=== PATIENT | male | born 1985 | race Caucasian/White ===

== ENCOUNTER 2017-03-08 11:53 | Emergency (ER) | payer MEDICARE, MEDICAID ==
[2017-03-08] MEDS ORDERED: IBUPROFEN 800 MG TABLET PO STA (12:21)
[2017-03-08] MEDS ORDERED: IBUPROFEN 800 MG TABLET PO ONE (12:24)
== END 2017-03-08 12:30 | disposition home or self-care (01) ==
DX: H60.502 Unspecified acute noninfective otitis externa, left ear (principal); F17.200 Nicotine dependence, unspecified, uncomplicated
CPT/HCPCS: 99283; A9270

== ENCOUNTER 2017-04-12 09:45 | Outpatient (CLI) | payer MEDICARE, MEDICAID | END 2017-04-12 09:46 | disposition home or self-care (01) | LOC: LAB.F 09:45 | PROVIDERS: ATTEND Nurse Practitioner Family | DX: D68.59 Other primary thrombophilia (principal) | CPT/HCPCS: 85610 ==

== ENCOUNTER 2017-04-15 10:16 | Outpatient (CLI) | payer MEDICARE, MEDICAID | END 2017-04-15 10:17 | disposition home or self-care (01) | LOC: LAB.F 10:16 | PROVIDERS: ATTEND Nurse Practitioner Family | DX: D68.59 Other primary thrombophilia (principal) | CPT/HCPCS: 85610 ==

== ENCOUNTER 2017-04-18 10:52 | Outpatient (CLI) | payer MEDICARE, MEDICAID | END 2017-04-18 10:53 | disposition home or self-care (01) | LOC: LAB.F 10:52 | PROVIDERS: ATTEND Nurse Practitioner Family | DX: D68.59 Other primary thrombophilia (principal) | CPT/HCPCS: 85610 ==

== ENCOUNTER 2017-04-21 21:57 | Emergency (ER) | payer MEDICARE, MEDICAID ==
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
[2017-04-22 00:36] LABS: BUN - BLOOD UREA NITROGEN 11 mg/dL (6-20); CALCIUM 9.3 mg/dL (8.5-10.3); CARBON DIOXIDE - CO2 25 mmol/L (21-32); CHLORIDE 105 mmol/L (101-111); CREATININE 0.7 mg/dL (0.6-1.2); GFR - MDRD 130 (>89); GLUCOSE 107 mg/dL (70-100); POTASSIUM 4.1 mmol/L (3.5-5.0); SALICYLATE < 6.0 mg/dL; SODIUM 143 mmol/L (135-145)
[2017-04-22 00:48] LABS: ACETAMINOPHEN < 10 ug/mL (10-30)
[2017-04-22 01:36] LABS: BASOPHILS # (AUTO) 0.1 10^3/uL (0.0-0.1); BASOPHILS % (AUTO) 0.9 %; EOSINOPHILS # (AUTO) 0.2 10^3/uL (0.0-0.7); EOSINOPHILS % (AUTO) 2.9 %; HCT - HEMATOCRIT 43.8 % (42.0-52.0); HGB - HEMOGLOBIN 14.1 g/dL (14.0-18.0); LYMPHOCYTES % (AUTO) 32.4 %; MEAN CORPUSCULAR HEMOGLOBIN 27.3 pg (27.0-31.0); MEAN CORPUSCULAR HGB CONC 32.3 g/dL (32.0-36.0); MEAN CORPUSCULAR VOLUME 84.7 fL (80.0-94.0); MEAN PLATELET VOLUME 8.7 fL (7.4-11.4); MONOCYTES # (AUTO) 0.4 10^3/uL (0.0-1.0); MONOCYTES % (AUTO) 5.8 %; NEUTROPHILS # (AUTO) 3.7 10^3/uL (1.5-6.6); NUCLEATED RED BLOOD CELLS AUTO 0.1 /100WBC; RED BLOOD COUNT 5.17 10^6/uL (4.70-6.10); RED CELL DISTRIBUTION WIDTH 18.9 % (12.0-15.0); UNCORRECTED WHITE BLOOD COUNT 6.3 x10^3/uL; WHITE BLOOD COUNT 6.3 x10^3/uL (4.8-10.8)
[2017-04-22 02:09] LABS: PLATELET ESTIMATE, MANUAL NORMAL (130-450,000) (NORMAL)
[2017-04-22] MEDS ORDERED: oxyCODONE 5 MG TABLET PO STA ×3 (02:20→06:26)
[2017-04-22] MEDS ORDERED: oxyCODONE 5 MG TABLET ONE ×3 (02:26→06:42)
--- NOTE | 2017-04-22 03:02 | XRAY Preliminary Report ---
Exam: XR Elbow 3 View RT IMPRESSION: 1. Radial neck and head fracture with soft tissue swelling and joint effusion. [facility] SITE ID: [id number]
--- NOTE | 2017-04-22 03:05 | XRAY Report ---
EXAM: RIGHT ELBOW RADIOGRAPHY EXAM DATE: 04/22/2017 02:48 AM. CLINICAL HISTORY: Injury, pain. COMPARISON: None. TECHNIQUE: 3 views. FINDINGS: Bones: Fracture at the radial neck and head. Joints: No dislocation seen. Joint spaces appear intact. Joint effusion. Soft Tissues: Soft tissue swelling. IMPRESSION: 1. Radial neck and head fracture with soft tissue swelling and joint effusion. [facility] Referring Provider Line: [phone] SITE ID: [id number]
[2017-04-22] MEDS ORDERED: oxyCOD/ACETAMIN 5 MG/325 MG TABLET PO STA (09:29)
[2017-04-22] MEDS ORDERED: oxyCOD/ACETAMIN 5 MG/325 MG TABLET PO ONE (09:35)
[2017-04-22 10:43] VITALS: BP 135/85
== END 2017-04-22 10:41 | disposition home or self-care (01) ==
LOC: EDUNIT# → ED 21:57
DX: F10.120 Alcohol abuse with intoxication, uncomplicated (principal); S52.124A Nondisplaced fracture of head of right radius, initial encounter for closed fracture; X58.XXXA Exposure to other specified factors, initial encounter; F17.200 Nicotine dependence, unspecified, uncomplicated
CPT/HCPCS: 29105; 36415; 73080; 80048; 80306; 80307; 85025; 99283; 99284; A9270; G0480; 80320; 80329

== ENCOUNTER 2017-04-25 07:37 | Outpatient (CLI) | payer MEDICARE, MEDICAID | END 2017-04-25 07:38 | disposition home or self-care (01) | LOC: LAB.F 07:37 | PROVIDERS: ATTEND Nurse Practitioner Family | DX: D68.59 Other primary thrombophilia (principal); Z79.899 Other long term (current) drug therapy | CPT/HCPCS: 80307; 85610 ==

== ENCOUNTER 2017-04-26 08:00 | Outpatient (CLI) | payer MEDICARE, MEDICAID ==
[2017-04-30 01:27] LABS: AMPHETAMINES NEGATIVE ng/mL (< 500); BARBITURATES NEGATIVE ng/mL (< 300); BENZODIAZEPINES NEGATIVE ng/mL (< 100); CREATININE 20.3 mg/dL (>= 20.0); MARIJUANA METABOLITE POSITIVE ng/mL (< 20); MARIJUANA METABOLITE THC >300 ng/mL (< 5); MEDMATCH AMPHETAMINES CONSISTENT (-); MEDMATCH BARBITURATES CONSISTENT (-); MEDMATCH BENZODIAZEPINES CONSISTENT (-); MEDMATCH COCAINE METAB CONSISTENT (-); MEDMATCH MARIJUANA METAB THC INCONSISTENT (-); MEDMATCH METHADONE METAB CONSISTENT (-); MEDMATCH OPIATES CONSISTENT (-); MEDMATCH OXYCODONE INCONSISTENT (()); MEDMATCH PHENCYCLIDINE CONSISTENT (-); METHADONE METABOLITE NEGATIVE ng/mL (< 100); OPIATES NEGATIVE ng/mL (< 100); OXIDANT NEGATIVE mcg/mL (< 200); PHENCYCLIDINE NEGATIVE ng/mL (< 25); PRESCRIBED DRUG 1 Oxycodone (())
== END 2017-04-26 08:01 | disposition home or self-care (01) ==
LOC: LAB.R 08:00
PROVIDERS: ATTEND Nurse Practitioner Family
DX: Z79.891 Long term (current) use of opiate analgesic (principal)
CPT/HCPCS: 80307

== ENCOUNTER 2017-05-13 11:26 | Outpatient (CLI) | payer MEDICARE, MEDICAID | END 2017-05-13 11:27 | disposition home or self-care (01) | LOC: LAB.F 11:26 | PROVIDERS: ATTEND Nurse Practitioner Family | DX: D68.59 Other primary thrombophilia (principal) | CPT/HCPCS: 85610 ==

== ENCOUNTER 2017-05-26 12:44 | Outpatient (CLI) | payer MEDICARE, MEDICAID ==
[2017-05-27 20:22] LABS: AMPHETAMINES NEGATIVE ng/mL (< 500); BARBITURATES NEGATIVE ng/mL (< 300); BENZODIAZEPINES NEGATIVE ng/mL (< 100); CREATININE 90.9 mg/dL (>= 20.0); MARIJUANA METABOLITE NEGATIVE ng/mL (< 20); MEDMATCH AMPHETAMINES CONSISTENT (-); MEDMATCH BARBITURATES CONSISTENT (-); MEDMATCH BENZODIAZEPINES CONSISTENT (-); MEDMATCH COCAINE METAB CONSISTENT (-); MEDMATCH MARIJUANA METAB CONSISTENT (-); MEDMATCH METHADONE METAB CONSISTENT (-); MEDMATCH OPIATES CONSISTENT (-); MEDMATCH OXYCODONE INCONSISTENT (()); MEDMATCH PHENCYCLIDINE CONSISTENT (-); METHADONE METABOLITE NEGATIVE ng/mL (< 100); OPIATES NEGATIVE ng/mL (< 100); OXIDANT Negative mcg/mL (< 200); PHENCYCLIDINE NEGATIVE ng/mL (< 25); PRESCRIBED DRUG 1 Oxycodone (())
== END 2017-05-26 12:45 | disposition home or self-care (01) ==
LOC: LAB.R 12:44
PROVIDERS: ATTEND Nurse Practitioner Family
DX: K91.89 Other postprocedural complications and disorders of digestive system (principal)
CPT/HCPCS: 80307

== ENCOUNTER 2018-12-21 07:14 | Outpatient (CLI) | payer MEDICAID, MEDICARE, OTHER ==
--- NOTE | 2018-12-21 08:07 | XRAY Report ---
Reason: PAIN IN LEFT WRIST Procedure Date: 12/21/2018 Accession Number: [id number] / [id number] Procedure: XR - Wrist 4 View LT CPT Code: FULL RESULT: EXAM: LEFT WRIST RADIOGRAPHY EXAM DATE: 12/21/2018 07:33 AM. CLINICAL HISTORY: PAIN IN LEFT WRIST. COMPARISON: None. TECHNIQUE: 3 views. FINDINGS: Bones: No suspicious findings. Negative for fracture. There is negative ulnar variance. Joints: Normal. No subluxations. Soft Tissues: Normal. No soft tissue swelling. IMPRESSION: No acute abnormality. [facility]
--- NOTE | 2018-12-21 08:10 | XRAY Report ---
Reason: HAND PAIN Procedure Date: 12/21/2018 Accession Number: [id number] / [id number] Procedure: XR - Hand 2 View LT CPT Code: FULL RESULT: EXAM: LEFT HAND RADIOGRAPHY EXAM DATE: 12/21/2018 07:33 AM. CLINICAL HISTORY: HAND PAIN. COMPARISON: ELBOW 3 VIEW RT 04/22/2017 2:27 AM WRIST 4 VIEW LT 12/21/2018 7:25 AM. TECHNIQUE: 3 views. FINDINGS: Bones: There is a nondisplaced comminuted fracture of the distal tuft of the middle finger. Joints: Normal. No subluxations. Soft Tissues: Normal. No soft tissue swelling. IMPRESSION: Acute comminuted nondisplaced fracture of middle finger distal tuft. [facility]
== END 2018-12-21 07:15 | disposition home or self-care (01) ==
LOC: DI 07:14
PROVIDERS: ATTEND Internal Medicine
DX: S62.663A Nondisplaced fracture of distal phalanx of left middle finger, initial encounter for closed fracture (principal); M25.532 Pain in left wrist

== ENCOUNTER 2020-12-11 13:29 | Emergency (ER) | payer OTHER ==
[2020-12-11] MEDS ORDERED: TETANUS/DIPHTHERIA/PERTUSSIS 0.5 ML SYRINGE IM ONE (13:50)
[2020-12-11] MEDS ORDERED: BUFFERED LIDOCAINE 10 ML SYRINGE SUBQ STA (13:50)
[2020-12-11] MEDS ORDERED: BACITRACIN ZINC OINT 1 PACKET TOP STA (13:50)
--- OUTSIDE RECORDS SUMMARY | 2020-12-11 13:54 | EXTERNAL MEDICAL SUMMARY RPT | Continuity of Care Document ---
:1985 Demographics Phone Unavailable Preferred Language Unknown Marital Status Unknown Anabaptist Affiliation Unknown Race Unknown Ethnic Group Unknown Author Organization [facility] Address [address] [place] [address] Phone Social History date description facility [phone]
--- NOTE | 2020-12-11 14:07 | XRAY Report ---
PROCEDURE: Finger(s) LT INDICATIONS: laceration with table saw TECHNIQUE: AP hand, 3 views of the right second finger(s) acquired. COMPARISON: None FINDINGS: Bones: No fractures or dislocations. No suspicious bony lesions. Soft tissues: No suspicious soft tissue calcifications. Large soft tissue defect compatible with la ceration in the tip of the left second finger. IMPRESSION: No fracture. Reviewed by: Chandrika Butts MD, PhD on 12/11/2020 2:05 PM PDT Approved by: Chandrika Butts MD, PhD on 12/11/2020 2:05 PM PDT Station ID: [id number]
--- NOTE | 2020-12-11 14:08 | ED Physician Documentation ---
History of Present Illness - Stated complaint Stated Complaint: LFT HAND LAC - Chief complaint Chief Complaint: Laceration - Additonal information Additional information: 35-year-old male presents the emergency department for evaluation of a left distal fingertip laceration sustained when using a table saw at work. Patient reports tetanus is up-to-date. Patient is right-hand dominant. Review of Systems Constitutional: reports: Reviewed and negative Ears: reports: Reviewed and negative Nose: reports: Reviewed and negative Throat: reports: Reviewed and negative Cardiac: reports: Reviewed and negative Respiratory: reports: Reviewed and negative GI: reports: Reviewed and negative : reports: Reviewed and negative Skin: reports: Laceration (s) (left index finger) PD PAST MEDICAL HISTORY - Past Medical History Past Medical History: Yes Psych: Bipolar disorder - Past Surgical History Past Surgical History: Yes General: Cholecystectomy, Gastric surgery - Present Medications Home Medications: Ambulatory Orders Medication Instructions Recorded Confirmed busPIRone [Buspar] 30 mg PO BID 01/19/16 04/21/17 Lamotrigine [Lamotrigine ER] 200 mg PO DAILY 06/26/16 04/21/17 Promethazine [Phenergan] 25 mg PO DAILY PRN 03/08/17 04/21/17 Ondansetron Odt [Zofran Odt] 4 mg PO Q6HR PRN 04/21/17 04/21/17 oxyCODONE/ACET 5/325 [Percocet 5 1 - 2 each PO Q6H PRN #14 tablet 04/22/17 mg/325 mg] HYDROcod/ACETAM 5/325 [[place] 5/325] 1 - 2 tablet PO Q6H PRN #14 tablet 12/11/20 cephALEXin [Keflex] 500 mg PO Q6H #28 12/11/20 - Allergies Allergies/Adverse Reactions: Allergies Allergy/AdvReac Type Severity Reaction Status Date / Time Sulfa (Sulfonamide Allergy Hives Verified 12/11/20 13:32 Antibiotics) - Social History Does the pt smoke?: Yes Smoking Status: Current every day smoker Does the pt drink ETOH?: No Does the pt have substance abuse?: Yes - Immunizations Immunizations are current?: Yes PD ED PE EXPANDED - Extremities Extremities: Left finger(s) (distal finger tip laceration extending through the nail bed with partial tip amputation/avulation. Decreased ability to extend at DIP) Results - Vitals Vitals: Vital Signs - 24 hr 12/11/20 13:32 Temperature 36.5 C Heart Rate 67 Respiratory 18 Rate Blood Pressure 170/100 H O2 Saturation 97 Oxygen O2 Source Room air - Rads (name of study) left fingers Radiology: Final report received (No fracture) Procedures - Laceration (location) finger laceration left index Length in cm: 3 Wound type: Irregular, Superficial, Into muscle, Contaminated Neurovascular status: Sensory intact, Motor intact Tendon involvement: Tendon Injury (extensor tendon) Anesthesia: Lidocaine 1% Wound preparation: Chlorhexadine, Irrigated copiously NS, To the base Skin layer closure: Nylon, Interrupted, Size #-0 - enter number (4), Sutures - enter # (5), Other (Distal index finger laceration/partial avulsion amputation through the nailbed on the radial side. No evidence of bony fracture or bone seen. The flap was closed with 5 four-point 0 sutures in an effort to create both a biologic dressing though it may not survive.) Other: Patient tolerated well, No complications, Neurovascular intact, Tetanus UTD PD MEDICAL DECISION MAKING - ED course Complexity details: reviewed results, re-evaluated patient, considered differential ED course: 35-year-old male presents emergency department with a left index fingertip partial avulsion amputation after getting injured with a saw at work today. This is a partial avulsion amputation the flap may not survive however it was approximated to the wound bed in order to help as a biologic dressing as well as to improve pain control. Tetanus is up-to-date. However this is a heavily contaminated wound. X-ray does not show any obvious fracture but ceftriaxone was given in the emergency department patient will be placed on a 7-day course of cephalexin. He is advised to return to the emergency department or urgent care tomorrow for a wound check. I will also make a referral to orthopedics for further evaluation of what I suspect may be an extensor tendon injury. Emergent return precautions were discussed. Departure - Departure Disposition: 01 Home, Self Care Clinical Impression: Avulsion, finger tip Qualifiers: Encounter type: initial encounter Qualified Code(s): S61.209A - Unspecified open wound of unspecified finger without damage to nail, initial encounter Finger laceration involving tendon Qualifiers: Encounter type: initial encounter Qualified Code(s): S61.219A - Laceration without foreign body of unspecified finger without damage to nail, initial encounter Laceration of index finger Qualifiers: Encounter type: initial encounter Damage to nail status: with damage Foreign body presence: without foreign body Laterality: left Qualified Code(s): S61.311A - Laceration without foreign body of left index finger with damage to nail, initial encounter Condition: Stable Record reviewed to determine appropriate education?: Yes Instructions: ED Laceration Hand Follow-Up: [facility] [Provider Group] Prescriptions: cephALEXin [Keflex] 500 mg PO Q6H #28 HYDROcod/ACETAM 5/325 [[place] 5/325] 1 - 2 tablet PO Q6H PRN #14 tablet PRN Reason: Pain Comments: Pawel you have a partial or near fingertip amputation on your left index finger. I would like you to return either to an urgent care or the emergency department tomorrow for a wound check. When you do return for the wound check please reference your workplace injury report. I would also like you to call the orthopedics department for follow-up to be reevaluated within the next week. It is possible that you do have a partial extensor tendon injury. Please fill the prescription for the antibiotics and begin taking as directed. I have also written a prescription for a limited amount of hydrocodone be cautious using this it may make you sleepy, dizzy and unable to drive. If at any point you have increasing pain, fevers redness or concerns of infection please return immediately to the emergency department.
[2020-12-11] MEDS ORDERED: cefTRIAXone 1 GM VIAL IM STA (14:14)
[2020-12-11] MEDS ORDERED: LIDOCAINE 1% 2 ML VIAL MC ONE (14:14)
[2020-12-11] MEDS ORDERED: HYDROcod/ACETAM 5/325 MG TABLET PO STA (15:11)
[2020-12-11 15:52] VITALS: BP 155/92
== END 2020-12-11 15:45 | disposition home or self-care (01) ==
LOC: ED 13:29
DX: S61.311A Laceration without foreign body of left index finger with damage to nail, initial encounter (principal); S66.321A Laceration of extensor muscle, fascia and tendon of left index finger at wrist and hand level, initial encounter; W31.2XXA Contact with powered woodworking and forming machines, initial encounter; Y93.89 Activity, other specified; Y99.0 Civilian activity done for income or pay; Z23 Encounter for immunization; F17.200 Nicotine dependence, unspecified, uncomplicated
CPT/HCPCS: 1040M; 12002; 73140; 90471; 90715; 96372; 99281; 99283; A9270

== ENCOUNTER 2020-12-12 | Emergency (ER) | payer OTHER ==
--- OUTSIDE RECORDS SUMMARY | 2020-12-12 18:10 | EXTERNAL MEDICAL SUMMARY RPT | Continuity of Care Document ---
:1985 Demographics Phone Unavailable Preferred Language Unknown Marital Status Unknown Yarsani Affiliation Unknown Race Unknown Ethnic Group Unknown Author Organization [facility] Address [address] [place] [address] Phone Social History date description facility [phone]
--- OUTSIDE RECORDS SUMMARY | 2020-12-12 18:13 | EXTERNAL MEDICAL SUMMARY RPT | Continuity of Care Document ---
:1985 Demographics Phone Unavailable Preferred Language Unknown Marital Status Unknown Jain Affiliation Unknown Race Unknown Ethnic Group Unknown Author Organization [facility] Address [address] [place] [address] Phone Social History date description facility [phone]
--- NOTE | 2020-12-12 19:19 | ED Physician Documentation ---
History of Present Illness - Stated complaint Stated Complaint: LT FINGER DRESSING CHANGE - Chief complaint Chief Complaint: Laceration - History obtained from History obtained from: Patient - History of Present Illness Timing: Yesterday Pain level max: 5 Pain level now: 5 - Additonal information Additional information: 35-year-old male states he had a left index finger laceration versus a table saw yesterday. Repaired here. Told to come back for a wound check today. States is still having pain. Worse with palpation, nothing makes it better. No fevers. No chills. Review of Systems Constitutional: denies: Fever, Chills Respiratory: denies: Cough GI: denies: Nausea, Vomiting, Diarrhea Skin: denies: Rash Neurologic: denies: Headache PD PAST MEDICAL HISTORY - Past Medical History Past Medical History: No Psych: Bipolar disorder - Past Surgical History Past Surgical History: Yes General: Cholecystectomy, Gastric surgery - Present Medications Home Medications: Ambulatory Orders Medication Instructions Recorded Confirmed HYDROcod/ACETAM 5/325 [[place] 5/325] 1 - 2 tablet PO Q6H PRN #14 tablet 12/11/20 12/12/20 cephALEXin [Keflex] 500 mg PO Q6H #28 12/11/20 12/12/20 Oxycodone HCl/Acetaminophen 1 - 2 each PO Q6H PRN #7 tablet 12/12/20 [Percocet 5-325 mg Tablet] - Allergies Allergies/Adverse Reactions: Allergies Allergy/AdvReac Type Severity Reaction Status Date / Time Sulfa (Sulfonamide Allergy Hives Verified 12/11/20 13:32 Antibiotics) - Social History Does the pt smoke?: Yes Smoking Status: Current every day smoker Does the pt drink ETOH?: No Does the pt have substance abuse?: Yes - Immunizations Immunizations are current?: Yes PD ED PE NORMAL - Vitals Vital signs reviewed: Yes - General General: Alert and oriented X 3, No acute distress - HEENT HEENT: Moist mucous membranes - Neck Neck: Supple, no meningeal sign - Derm Derm: Warm and dry - Extremities Extremities: Other (L index finger - sutures in place in distal phalanx. NVI. no swelling or drainage. ) - Neuro Neuro: Alert and oriented X 3 Results - Vitals Vitals: Vital Signs - 24 hr 12/12/20 18:08 Temperature 36.9 C Heart Rate 58 L Respiratory 16 Rate O2 Saturation 97 Oxygen O2 Source Room air PD MEDICAL DECISION MAKING - ED course Complexity details: considered differential, d/w patient ED course: The wound was rebandaged and redressed. No signs of infection at this time. A splint was applied to help protect the area as well. Patient will follow up with orthopedics as previously instructed. Patient counseled regarding signs and symptoms for which I believe and urgent re-evaluation would be necessary. Patient with good understanding of and agreement to plan and is comfortable going home at this time This document was made in part using voice recognition software. While efforts are made to proofread this document, sound alike and grammatical errors may occur. Departure - Departure Disposition: 01 Home, Self Care Clinical Impression: Laceration of index finger Qualifiers: Encounter type: initial encounter Damage to nail status: unspecified Foreign body presence: unspecified Laterality: left Qualified Code(s): S61.211A - Laceration without foreign body of left index finger without damage to nail, initial encounter Condition: Good Instructions: ED Laceration Hand Follow-Up: ARGELIA WINN ARNP [Primary Care Provider] - [facility] [Provider Group] Prescriptions: Oxycodone HCl/Acetaminophen [Percocet 5-325 mg Tablet] 1 - 2 each PO Q6H PRN #7 tablet PRN Reason: pain Comments: Follow-up with orthopedics for further care. You need to finish the antibiotics as previously prescribed. Return if you worsen. Return especially for redness, swelling or drainage from the wound. Keep the splint in place to help protect the wound. Do not drink alcohol or drive while on narcotic pain medicine. Note that many narcotic pain relievers also contain tylenol/acetaminophen. Please ensure that your total dose of acetaminophen from all sources does not exceed 3 grams (3000mg) per day. You may constipated on this medication, take a stool softener such as "Colace" twice a day while you are on it. Also recommend a [id number]-[id number] laxative such as senna or MiraLAX any day that you do not have a bowel movement. If you received narcotic pain medication in the emergency department, do not drive or operate machinery for the next 24 hours. Discharge Date/Time: 12/12/20 19:23
== END 2020-12-12 19:23 | disposition home or self-care (01) ==
CPT/HCPCS: 99281; 99284